=== PATIENT | female | born 1980 | race Caucasian/White ===

== ENCOUNTER 2019-02-08 17:08 | Emergency (ER) | payer MEDICAID ==
[~2019-02-08] VITALS: Ht 167.6 cm; Wt 71.7 kg
[2019-02-08 17:36] VITALS: BP_SYST 152
--- NOTE | 2019-02-08 19:31 | NUR ---
Patient to ER bed 2 to gown for evaluation. Side rails up. Report given to Mara URIARTE.
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
--- NOTE | 2019-02-08 20:00 | NUR ---
ER at bedside examining patient.
[2019-02-08] MEDS ORDERED: KETOROLAC TROMETHAMINE 60 MG/2 ML VIAL IM ONE (20:15)
[2019-02-08 21:40] VITALS: BP_SYST 140
--- NOTE | 2019-02-08 21:40 | NUR ---
Patient given written and verbal discharge instructions and verbalizes understanding. ER MD discussed with patient the results and treatment provided. Patient in stable condition. ID arm band removed. Rx of Naprosyn, Flexeril given. Patient educated on pain management and to follow up with PMD. Pain Scale 0/10. Opportunity for questions provided and answered. Medication side effect fact sheet provided.
== END 2019-02-08 21:40 | disposition home or self-care (01) ==
LOC: SED 17:08
DX: S43.401A Unspecified sprain of right shoulder joint, initial encounter (principal); V43.62XA Car passenger injured in collision with other type car in traffic accident, initial encounter; Y93.89 Activity, other specified; Y92.410 Unspecified street and highway as the place of occurrence of the external cause; Y99.8 Other external cause status
CPT/HCPCS: 73030; 96372; 99283; J1885; 81025